=== PATIENT | male | born 1975 | race Two or more races ===

== ENCOUNTER 2018-11-01 07:39 | Outpatient (CLI) | payer OTHER ==
[2018-11-01 08:56] LABS: *BILIRUBIN,URIN NEGATIVE (NEGATIVE); *BLOOD, URINE NEGATIVE (NEGATIVE); *CLARITY,URINE CLEAR (CLEAR); *COLOR,URINE YELLOW (YELLOW); *KETONES,URINE NEGATIVE (NEGATIVE); *UROBILINOGEN,URINE 0.2 E.U./dl (NORMAL); LEUKOCYTE ESTERASE ,URINE NEGATIVE (NEGATIVE); NITRITE, URINE NEGATIVE (NEGATIVE); PH,URINE 6.5 (5.0-8.0); UGLUCOSE TRACE (NEGATIVE)
[2018-11-01 09:03] LABS: BACTERIA,URINE NONE SEEN /HPF (NONE SEEN); RBC,URINE 0-3 /HPF (0-3); WBC,URINE 0-3 /HPF (0-3)
[2018-11-01 09:04] LABS: MUCUS,URINE FEW /LPF (0-FEW); SQUAMOUS EPITHELIAL CELL,UR FEW /HPF (NONE SEEN)
[2018-11-01 09:05] LABS: BILIRUBIN,TOTAL 0.7 mg/dL (0.2-1.0); CREATININE 0.8 mg/dL (0.6-1.3); POTASSIUM 3.8 mmol/L (3.5-5.1); TOTAL PROTEIN, SERUM 8.2 g/dL (6.4-8.2)
[2018-11-01 09:07] LABS: BASOPHILS # (AUTO) 0.1 K/uL (0.0-8.0); BASOPHILS % (AUTO) 0.7 % (0.0-2.0); EOSINOPHILS # (AUTO) 1.1 K/uL (0.0-0.7); EOSINOPHILS % (AUTO) 11.2 % (0.0-7.0); HEMATOCRIT 48.4 % (36.7-47.1); HEMOGLOBIN 16.6 g/dL (12.5-16.3); LYMPHOCYTES # (AUTO) 2.5 K/uL (20.0-40.0); LYMPHOCYTES % (AUTO) 26.3 % (20.5-51.5); MEAN CORPUSCULAR HEMOGLOBIN 30.2 uug (23.8-33.4); MEAN CORPUSCULAR HGB CONC 34 g/dL (32.5-36.3); MEAN CORPUSCULAR VOLUME 88.1 fL (73.0-96.2); MONOCYTES # (AUTO) 0.5 K/uL (2.0-10.0); MONOCYTES % (AUTO) 5.3 % (0.0-11.0); NEUTROPHILS # (AUTO) 5.3 K/uL (1.8-8.9); NEUTROPHILS % (AUTO) 56.5 % (38.5-71.5); PLATELET COUNT (AUTO) 227 K/uL (152-348); RED BLOOD CELL COUNT(AUTO) 5.49 MIL/uL (4.06-5.63); WHITE BLOOD COUNT (AUTO) 9.4 K/uL (3.6-10.2)
[2018-11-04] MEDS ORDERED: ASPI-612 PO (12:26)
[2018-11-04] MEDS ORDERED: ATOR20TA PO (12:26)
== END 2018-11-01 23:59 | disposition home or self-care (01) ==
LOC: LAB 07:39
PROVIDERS: ATTEND Orthopaedic Surgery
DX: Z01.818 Encounter for other preprocedural examination (principal); Z79.4 Long term (current) use of insulin; Z83.3 Family history of diabetes mellitus
CPT/HCPCS: 36415; 85025; 85730

== ENCOUNTER 2018-11-03 09:44 | Day surgery (SDC) | payer OTHER ==
[~2018-11-03] VITALS: Ht 170.2 cm; Wt 133.8 kg
[2018-11-03] MEDS ORDERED: MORPHINE SULFATE PF 10 MG/10 ML AMPUL IV ONE (11:29)
[2018-11-03] MEDS ORDERED: BUPIVACAINE/EPI PF 0.25% 30 ML VIAL ONE (11:29)
[2018-11-03] MEDS ORDERED: HYDROMORPHONE 2 MG/1 ML DISP.SYRIN ONE (12:37)
[2018-11-03] MEDS ORDERED: SEVOFLURANE 250 ML BOTTLE ONE (12:52)
[2018-11-03] MEDS ORDERED: LIDOCAINE HCL 2% 20 ML VIAL MC ONE (15:00)
[2018-11-03] MEDS ORDERED: KETOROLAC TROMETHAMINE 30 MG INJ IM ONE (15:00)
[2018-11-03] MEDS ORDERED: ONDANSETRON 4 MG/2 ML VIAL IV ONE (15:00)
[2018-11-03] MEDS ORDERED: IRR NORMAL SALINE IRRIGATION 4000 ML BOTTLE IR ONE (15:00)
[2018-11-03] MEDS ORDERED: DEXAMETHASONE SOD PHOSPHATE 4 MG INJ IV ONE (15:00)
[2018-11-03] MEDS ORDERED: CEFAZOLIN 1 G VIAL MC ONE (15:00)
[2018-11-03] MEDS ORDERED: IV NORMAL SALINE 1000 ML BAG IV ONE (15:00)
[2018-11-03] MEDS ORDERED: PROPOFOL 200 MG/20 ML BOTTLE IV ONE (15:00)
--- NOTE | 2018-11-03 15:00 | NUR ---
43 year old male received from recovery room via bed in stable condition.v/s are stable.call light with in reach md called for admission orders
[2018-11-03 15:13] VITALS: BP 125/72
[2018-11-03] MEDS ORDERED: TRAMADOL HCL 50 MG TABLET PO PRN (15:45)
[2018-11-03] MEDS ORDERED: METF-495 PO (15:47)
[2018-11-03] MEDS ORDERED: GLIP10TA11 PO (15:48)
[2018-11-03] MEDS ORDERED: METF500S7 PO (15:50)
[2018-11-03] MEDS ORDERED: SITA100T PO (15:52)
[2018-11-03] MEDS: IV LACTATED RINGERS SOLUTION 1,000 ML IV PRN (15:54)
[2018-11-03] MEDS ORDERED: ZOLPIDEM 5 MG TABLET PO PRN (18:00)
[2018-11-03] MEDS ORDERED: DEXTROSE 50% 50 ML DISP.SYRIN IV PRN (18:00)
[2018-11-03] MEDS ORDERED: ONDANSETRON 4 MG/2 ML VIAL IV PRN (18:00)
[2018-11-03] MEDS ORDERED: ACETAMINOPHEN 325 MG TABLET PO PRN (18:00)
[2018-11-03] MEDS ORDERED: MAGNESIUM HYDROXIDE 30 ML LIQUID UDC PO PRN (18:00)
[2018-11-03] MEDS: METFORMIN HCL 500 MG TABLET PO SCH (18:52)
[2018-11-03 20:00] VITALS: BP 119/68
[2018-11-03] MEDS: BLOOD SUGAR DIAGNOSTIC 1 EACH STRIP VI SCH (20:29)
[2018-11-03] MEDS: INSULIN REGULAR, HUMAN 300 UNIT/3 ML VIAL SQ PRN (20:32)
[2018-11-03] MEDS: glipiZIDE 10 MG TABLET PO SCH (22:18)
--- NOTE | 2018-11-03 22:19 | NUR ---
Glipizide 10 mg given at this time for late order. BS is 278. Patient tolerated well. Will continue to monitor.
--- NOTE | 2018-11-04 00:01 | NUR ---
Patient was assessed prior to CPAP application. Diminished lung sounds in lower and middle lobes, SpO2 96% on 1L NC. No respiratory distress noted. Able to wiggle toes bilaterally, denies pain or tingling. Skin is dry and warm. Patient ate 1.5 sandwich 1 pudding and a small orange juice. Fell asleep with CPAP.
[2018-11-04] MEDS: IV LACTATED RINGERS SOLUTION 1,000 ML IV PRN (01:53)
--- NOTE | 2018-11-04 02:06 | NUR ---
PT ON O2 @ 1L/M NC , PT WITH ORDER TO BE ON CPAP MACHINE WITH LARGE MASK, WITH SETTINGS, 5CM, FIO2 24%, PT PLACED ON CPAP MACHINE APPROX. 2316, WITH FULL LARGE MASK, DOING WELL, SLEEPING WELL DURING NIGHT, GOOD VT 650. 950ML, RR14/18, WILL CHECK PERIODICALLY. PULSE OXY AT BEDSIDE, SAT 99%. Navya PARKSP Addendum: 11/04/18 at 0246 by BERTIN DE LA ROSA RT Amended: Links added.
[2018-11-04 05:49] VITALS: BP 97/52
[2018-11-04] MEDS: BLOOD SUGAR DIAGNOSTIC 1 EACH STRIP VI SCH ×2 (06:30→12:20)
[2018-11-04 06:37] LABS: BASOPHILS % (AUTO) 0.3 % (0.0-2.0); EOSINOPHILS # (AUTO) 0.2 K/uL (0.0-0.7); EOSINOPHILS % (AUTO) 1.5 % (0.0-7.0); HEMATOCRIT 42.4 % (36.7-47.1); HEMOGLOBIN 14.5 g/dL (12.5-16.3); LYMPHOCYTES # (AUTO) 2.8 K/uL (20.0-40.0); LYMPHOCYTES % (AUTO) 23.2 % (20.5-51.5); MEAN CORPUSCULAR HEMOGLOBIN 30.1 uug (23.8-33.4); MEAN CORPUSCULAR HGB CONC 34 g/dL (32.5-36.3); MEAN CORPUSCULAR VOLUME 88.2 fL (73.0-96.2); MONOCYTES # (AUTO) 0.9 K/uL (2.0-10.0); MONOCYTES % (AUTO) 7.2 % (0.0-11.0); NEUTROPHILS # (AUTO) 8.2 K/uL (1.8-8.9); NEUTROPHILS % (AUTO) 67.8 % (38.5-71.5); PLATELET COUNT (AUTO) 220 K/uL (152-348); RED BLOOD CELL COUNT(AUTO) 4.81 MIL/uL (4.06-5.63); WHITE BLOOD COUNT (AUTO) 12.1 K/uL (3.6-10.2)
[2018-11-04 06:52] LABS: CREATININE 0.7 mg/dL (0.6-1.3); MAGNESIUM 1.7 mg/dL (1.8-2.4); PHOSPHOROUS 3.7 mg/dL (2.5-4.9); POTASSIUM 3.7 mmol/L (3.5-5.1)
--- NOTE | 2018-11-04 07:20 | NUR ---
PATIENT RECEIVED,RESTING, NO S/S DISTRESS, HE HAD A RIGHT KNEE SURGERY PT ON O2 @ 1L/M NC , PATIENT PLACED ON CPAP WITH FULL LARGE MASK, DOING WELL, VT 650. 950ML, RR14/18, WILL CHECK PERIODICALLY. PULSE OXY AT BEDSIDE, SAT 99%. , ALL SAFETY PRECAUTIONS IMPLEMENTED , BED IN LOW POSITION, LOCKED,SIDE RAILS UP X2
[2018-11-04] MEDS ORDERED: LINAGLIPTIN 5 MG TABLET PO SCH (09:00)
[2018-11-04] MEDS: METFORMIN HCL 500 MG TABLET PO SCH (09:08)
[2018-11-04] MEDS: glipiZIDE 10 MG TABLET PO SCH (09:09)
[2018-11-04 11:37] VITALS: BP 104/57
[2018-11-04] MEDS ORDERED: ASPI-612 PO (12:26)
[2018-11-04] MEDS ORDERED: ATOR20TA PO (12:26)
[2018-11-04] MEDS: INSULIN REGULAR, HUMAN 300 UNIT/3 ML VIAL SQ PRN (12:26)
[2018-11-04] MEDS ORDERED: MAGNESIUM OXIDE 400 MG TABLET PO ONE (14:15)
[2018-11-04 15:44] VITALS: BP 106/68
--- NOTE | 2018-11-04 16:00 | NUR ---
Patient was given discharge instructions, iv removed and pharmacy consult acquired. Patient was taken to discharge area where he was met by son.
== END 2018-11-04 15:51 | disposition home or self-care (01) ==
LOC: MEDSURG3 09:44 → DS 09:44 → MEDSURG3 14:59
PROVIDERS: ADMIT Orthopaedic Surgery; ATTEND Nurse Practitioner Acute Care
PROC: 0SBC4ZZ Excision of Right Knee Joint, Percutaneous Endoscopic Approach (ICD-10-PCS; principal; 2018-11-03)
DX: S83.241A Other tear of medial meniscus, current injury, right knee, initial encounter (principal); S83.281A Other tear of lateral meniscus, current injury, right knee, initial encounter; X58.XXXA Exposure to other specified factors, initial encounter; Y92.69 Other specified industrial and construction area as the place of occurrence of the external cause; Y99.0 Civilian activity done for income or pay; G47.33 Obstructive sleep apnea (adult) (pediatric); E66.01 Morbid (severe) obesity due to excess calories; Z68.42 Body mass index [BMI] 45.0-49.9, adult; E11.65 Type 2 diabetes mellitus with hyperglycemia; M22.41 Chondromalacia patellae, right knee; M65.861 Other synovitis and tenosynovitis, right lower leg; Z74.09 Other reduced mobility; D68.59 Other primary thrombophilia; M67.51 Plica syndrome, right knee; E83.42 Hypomagnesemia; E78.5 Hyperlipidemia, unspecified; R91.1 Solitary pulmonary nodule; I11.0 Hypertensive heart disease with heart failure; I50.22 Chronic systolic (congestive) heart failure; I42.9 Cardiomyopathy, unspecified; D72.829 Elevated white blood cell count, unspecified
CPT/HCPCS: 29880; 36415; 71045; 80048; 80061; 82962 ×5; 83036; 83735; 84100; 85025; 94660; 97161; G0378 ×23; J0690; J1100; J1170; J1815; J1885; J2274; J2405; J3490 ×2; J7120 ×2; A4217; A4663; J7030